=== PATIENT | female | born 1965 | race Caucasian/White ===

== ENCOUNTER 2019-01-09 05:54 | Day surgery (SDC) | payer OTHER ==
[2019-01-09] MEDS ORDERED: LIDOCAINE 4% SOLUTION 50 ML BTL (06:34)
== END 2019-01-09 11:57 | disposition home or self-care (01) ==
LOC: GIL 05:54
DX: R19.5 Other fecal abnormalities (principal); K29.50 Unspecified chronic gastritis without bleeding; K64.8 Other hemorrhoids
CPT/HCPCS: 43239; 88305; 88312